=== PATIENT | female | born 1990 | race Caucasian/White ===

== ENCOUNTER 2019-08-27 06:41 | Day surgery (SDC) | payer MEDICAID ==
[2019-08-24 14:58] LABS: CLARITY,URINE CLEAR (Clear); COLOR,URINE YELLOW (Yellow); GLUCOSE, URINE NEGATIVE (Neg); KETONES,URINE NEGATIVE (Neg); LEUKOCYTE ESTERASE ,URINE NEGATIVE (Neg); NITRITES, URINE NEGATIVE (Neg); OCCULT BLOOD,URINE NEGATIVE (Neg); PH,URINE 6.5 (4.8-8.0); PROTEIN,URINE NEGATIVE (Neg); UROBILINOGEN,URINE 0.2 E.U/dL (0.2-1.0)
[2019-08-24 14:58] LABS: BASOPHILS # (AUTO) 0.1 X10'3 (0-0.2); BASOPHILS % (AUTO) 0.8 % (0-1); EOSINOPHILS # (AUTO) 0.1 X10'3 (0-0.9); EOSINOPHILS % (AUTO) 1.6 % (0-6); LYMPHOCYTES # (AUTO) 2.8 X10'3 (1.1-4.8); LYMPHOCYTES % (AUTO) 35.9 % (21-51); MEAN CORPUSCULAR HEMOGLOBIN 26.1 PG (27.0-31.0); MEAN CORPUSCULAR HGB CONC 33.1 g/dL (33.0-36.5); MEAN CORPUSCULAR VOLUME 78.9 FL (78-98); MEAN PLATELET VOLUME 8.9 FL (7.4-10.4); MONOCYTES # (AUTO) 0.8 X10'3 (0-0.9); NEUTROPHILS % (AUTO) 51.7 % (42-75); PRE OP HEMATOCRIT 39.9 % (35.0-45.0); PRE OP HEMOGLOBIN 13.2 g/dL (12.0-16.0); PRE OP PLATELET COUNT 309 X10'3 (140-440); RED BLOOD COUNT 5.06 X10'6 (4.20-5.60); RED CELL DISTRIBUTION WIDTH 14.3 % (11.5-14.5)
[2019-08-24 15:00] LABS: UA COLLECTION TYPE CLN CATCH MIDSTREAM
[2019-08-24 15:07] LABS: HCG SERUM QL NEGATIVE
[2019-08-24 15:09] LABS: PRE OP INR 0.9 INR; PRE OP PROTIME 9.7 SECONDS (9.0-12.0)
[2019-08-24 15:16] LABS: ALBUMIN 3.8 G/DL (3.4-5.0); ALKALINE PHOSPHATASE 79 IU/L (46-116); BLOOD UREA NITROGEN 9 MG/DL (7-18); BUN/CREATININE RATIO 12.5 (6.6-38.0); CALCIUM 8.4 MG/DL (8.5-10.1); CHLORIDE 108 MMOL/L (99-107); CREATININE 0.72 MG/DL (0.40-0.90); PRE OP ALT 54 U/L (30-65); PRE OP ANION GAP 8 (8-16); PRE OP AST 30 U/L (10-37); PRE OP BILIRUB, TOTAL 0.2 MG/DL (0.0-1.0); PRE OP GLUCOSE 77 MG/DL (70-104); PRE OP POTASSIUM 3.8 MMOL/L (3.4-5.1); PRE OP SODIUM 142 MMOL/L (135-145); TOTAL CARBON DIOXIDE 26.1 MMOL/L (24-32); TOTAL PROTEIN 7.7 G/DL (6.4-8.2); eGFR > 90 ML/MIN
[2019-08-27] VITALS (8 sets, daily range): BP systolic 137–151; BP diastolic 79–92
[~2019-08-27] VITALS: Ht 175.3 cm; Wt 117.9 kg
[~2019-08-27 06:41] MED LIST: DULO-31 PO; MULT-1085 PO; ceFOXitin 2 GM ADDvantage bag 100 ML IV ONE; famotidine 10mg tablet PO ONE; ringers solution, lacted 1,000 ML IV SCH
[2019-08-27] MEDS ORDERED: aprepitant 40mg capsule PO ONE ×2 (07:15→07:20)
[2019-08-27] MEDS ORDERED: scopolamine 1.5mg patch.TD72 TD ONE ×2 (07:15→07:16)
[2019-08-27] MEDS ORDERED: ringers solution, lacted 1,000 ML IV SCH (07:55)
[2019-08-27] MEDS ORDERED: meperidine/PF 25mg/ml syringe IV PRN ×3 (07:55)
[2019-08-27] MEDS ORDERED: morphine 4 MG/ML inj SYRINge IV PRN ×2 (07:55)
[2019-08-27] MEDS ORDERED: proCHLORperazine 10 MG/2 ml inj IV PRN (07:55)
[2019-08-27] MEDS ORDERED: ondansetron/PF 4mg/2ml inj IV PRN (07:55)
[2019-08-27] MEDS ORDERED: BUPIVAcaine/PF 2.5 mg/ml (0.25%) 30ml vial ONE (08:06)
[2019-08-27] MEDS ORDERED: midazolam 2 mg/2 ml injection ONE (08:31)
[2019-08-27] MEDS ORDERED: LIDOcaine 2% (20mg/ml) 5ml vial ONE (08:31)
[2019-08-27] MEDS ORDERED: propofol inj 20 ML IV ONE (08:31)
[2019-08-27] MEDS ORDERED: rocuronium 10mg/ml inj IV ONE (08:31)
[2019-08-27] MEDS ORDERED: fentaNYL /PF 50mcg/ml 5ml ampule ONE (08:31)
[2019-08-27] MEDS ORDERED: fentaNYL/PF 50MCG/1 ML 2ML syringe ONE (11:17)
[2019-08-27] MEDS ORDERED: acetaminophen 1,000mg/100ml IV 100 ML IV ONE (11:46)
--- NOTE | 2019-08-27 12:07 | NUR ---
Received from OR via , accompanied by Anesthesiologist DR SOLITARIO and report given by Anesthesiolgist. AWAKENS TO VOICE. VITALS STABLE. DRESSINGS DI. IRENE PAIN. ABD SOFT.
[2019-08-27] MEDS ORDERED: ketorolac trometh. 30mg/ml inj. IV ONE (13:05)
--- NOTE | 2019-08-27 13:37 | NUR ---
AWAKE AND ORIENTED. VITALS STABLE. DRESSINGS DI. STATES PAIN TOLERABLE. HOME WITH HER SPOUSE AT THIS TIME.
== END 2019-08-27 13:37 | disposition home or self-care (01) ==
LOC: PAS 06:41
PROVIDERS: ATTEND Obstetrics & Gynecology
DX: R10.2 Pelvic and perineal pain (principal); N92.1 Excessive and frequent menstruation with irregular cycle; N83.291 Other ovarian cyst, right side; N73.6 Female pelvic peritoneal adhesions (postinfective); I10 Essential (primary) hypertension; Z79.899 Other long term (current) drug therapy; Z80.49 Family history of malignant neoplasm of other genital organs
CPT/HCPCS: 36415; 58570; 58662; 80053; 81003; 84703; 85025; 85610; 85730; 86885; 86900; 86901; C1758; J0131; J0694; J1885; J2001; J2250; J2704; J3010; J3490; J7030; J7120; J8501; S2900; 82948; A4355; A4618; A7000

== ENCOUNTER 2023-09-14 11:28 | Emergency (ER) | payer MEDICAID ==
[~2023-09-14] VITALS: Ht 177.8 cm; Wt 125.2 kg
[~2023-09-14 11:28] MED LIST changes: -ceFOXitin 2 GM ADDvantage bag 100 ML IV ONE; -famotidine 10mg tablet PO ONE; -ringers solution, lacted 1,000 ML IV SCH
[2023-09-14] MEDS ORDERED: normal saline 1000ML IV soln IVB ONE (12:05)
[2023-09-14] MEDS ORDERED: ketorolac tromethamine 15mg/ml inj. IV ONE (12:05)
[2023-09-14] MEDS ORDERED: ondansetron/PF 4mg/2ml inj IV ONE (12:05)
[2023-09-14 12:08] LABS: BILIRUBIN,URINE NEGATIVE (Neg); CLARITY,URINE CLEAR (Clear); COLOR,URINE YELLOW (Yellow); GLUCOSE, URINE NEGATIVE (Neg); KETONES,URINE NEGATIVE (Neg); LEUKOCYTE ESTERASE ,URINE NEGATIVE (Neg); NITRITES, URINE NEGATIVE (Neg); OCCULT BLOOD,URINE NEGATIVE (Neg); PROTEIN,URINE NEGATIVE (Neg); UROBILINOGEN,URINE 0.2 E.U/dL (0.2-1.0)
[2023-09-14 12:09] LABS: URINE HCG NEGATIVE (NEG)
[2023-09-14 12:12] LABS: UA COLLECTION TYPE CLN CATCH MIDSTREAM
[2023-09-14 13:02] LABS: BASOPHILS % (AUTO) 0.7 % (0-1); EOSINOPHILS # (AUTO) 0.1 X10'3 (0-0.9); EOSINOPHILS % (AUTO) 1.5 % (0-6); LYMPHOCYTES # (AUTO) 2.5 X10'3 (1.1-4.8); LYMPHOCYTES % (AUTO) 40.2 % (21-51); MEAN CORPUSCULAR HEMOGLOBIN 26.6 PG (27.0-31.0); MEAN CORPUSCULAR HGB CONC 33.4 g/dL (33.0-36.5); MEAN CORPUSCULAR VOLUME 79.7 FL (78-98); MEAN PLATELET VOLUME 9.1 FL (7.4-10.4); MONOCYTES # (AUTO) 0.5 X10'3 (0-0.9); MONOCYTES % (AUTO) 7.4 % (2-12); NEUTROPHILS # (AUTO) 3.1 X10'3 (1.8-7.7); NEUTROPHILS % (AUTO) 50.2 % (42-75); PLATELET COUNT 301 X10'3 (140-440); RED BLOOD COUNT 5.26 X10'6 (4.20-5.60); RED CELL DISTRIBUTION WIDTH 14.5 % (11.5-14.5); WHITE BLOOD COUNT 6.1 X10'3 (4.5-11.0)
[2023-09-14 13:20] LABS: ALANINE AMINOTRANSFERASE 33 U/L (12-78); ALBUMIN 3.9 G/DL (3.4-5.0); ALBUMIN/GLOBULIN RATIO 0.9 (1.1-1.5); ALKALINE PHOSPHATASE 68 IU/L (46-116); ANION GAP 10 (8-16); ASPARTATE AMINO TRANSFERASE 23 U/L (10-37); BILIRUBIN,TOTAL 0.4 MG/DL (0.1-1.0); BLOOD UREA NITROGEN 12 MG/DL (7-18); BUN/CREATININE RATIO 16.4 (10.0-20.0); CALCIUM 9.6 MG/DL (8.5-10.1); CHLORIDE 100 MMOL/L (99-107); CREATININE 0.73 MG/DL (0.40-0.90); GLUCOSE 117 MG/DL (70-104); LIPASE 26 U/L (16-77); SODIUM 139 MMOL/L (135-145); TOTAL CARBON DIOXIDE 28.8 MMOL/L (24-32); TOTAL PROTEIN 8.3 G/DL (6.4-8.2); eCRCL 120 ML/MIN; eGFR > 90 ML/MIN
[2023-09-14 13:23] VITALS: BP 154/99; PULSE 60; TEMP 97.8; O2SAT 100
[2023-09-14 13:26] LABS: POTASSIUM 2.8 MMOL/L (3.5-5.1)
[2023-09-14] MEDS ORDERED: potassium Cl 20 mEq SR tablet PO STA (13:26)
[2023-09-14 13:32] VITALS: RESP 16
[2023-09-14] MEDS ORDERED: LOSA50TA64 PO (13:41)
== END 2023-09-14 14:52 | disposition home or self-care (01) ==
LOC: ER 11:28
DX: N83.202 Unspecified ovarian cyst, left side (principal); I10 Essential (primary) hypertension; Z91.09 Other allergy status, other than to drugs and biological substances; Z91.040 Latex allergy status; Z79.899 Other long term (current) drug therapy; Z98.890 Other specified postprocedural states
CPT/HCPCS: 36415; 76830; 76856; 80053; 81003; 81025; 83690; 85025; 93976; 96361; 96374; 99285; J1885; J7030

== ENCOUNTER 2025-01-03 08:13 | Emergency (ER) | payer MEDICAID ==
[~2025-01-03] VITALS: Ht 177.8 cm; Wt 125.0 kg
[~2025-01-03 08:13] MED LIST changes: +LOSA50TA64 PO
[2025-01-03 08:15] VITALS: BP 153/90; PULSE 68; RESP 15; O2SAT 100
[2025-01-03 09:05] VITALS: TEMP 98.2
--- NOTE | 2025-01-03 09:20 | Physician Documentation ---
History of Present Illness ~ Chief Complaint: Bite-animal Stated Complaint: CAT BITE Time Seen by MD: 08:32 Primary Medical Doctor: tess engle HPI 34-year-old female presenting with a cat scratch and subsequent infection on her right forearm. Patient states that she was trying to help a feral cat yesterday and the cat got scared and scratched her. Several hours later she noticed that some areas of redness started to appear around the area of the scratch. She states that this has worsened today and has become slightly sore and painful. She denies any fever or chills. Denies any other symptoms. Tetanus within 5 years?: No Medication Reconciliation Allergies: Coded Allergies: adhesive tape (Verified Allergy, Unknown, 09/14/23) latex (Verified Allergy, Unknown, 09/14/23) Scheduled Duloxetine Hcl* (Cymbalta*), 1 CAP PO HS, (Reported) Losartan Potassium (Losartan Potassium), 1 TAB PO DAILY Multivitamin (Multi Vitamin Daily), 1 EACH PO DAILY, (Reported) Past Medical History Past Medical History: Hypertension Past Surgical History: , orthopedic surgeries Review of Systems All Other Systems at this time: Reviewed and Negative Physical Exam Vital Signs: Temperature: 98.2, Source: Oral, Heart Rate: 68, Respiratory Rate: 15, BP: 153/90, Pulse Oximetry: 100, Weight: 125.000 Oxygen Flow Rate: 0 Physical Exam I have reviewed the triage vitals. CONST: Well developed and well nourished. In no acute distress HENT: Head Atraumatic EYES: Pupils are equal, round and reactive to light. Normal conjunctiva NECK: Normal range of motion. Supple. CARDIO: Normal rate and regular rhythm. No murmurs, rubs, or gallops. S1, S2. PULM/CHEST: No respiratory distress. Lungs clear to auscultation. No wheeze ABD: Soft and nontender. Nondistended. Bowel sounds normal. No guarding. : Exam deferred MSK: No edema. No deformity. There are several cat scratches over the right forearm with a surrounding area of erythema, induration and tenderness to palpation NEURO: Alert and oriented to person, place and time. Moving all extremities SKIN: Warm and dry. PSYCH: Normal mood and affect. Good eye contact. Progress Results/Orders Results/Orders Completed Orders - ANA BEE MD Ceftriaxone Im Kit W/Lidocaine (Rocephin (01/03/25 09:15) Amox Tr/Potassium Clavulanate (Augmentin (01/03/25 09:15) Tetanus/Pertuss/Diph Acell/Pf (Boostrix (01/03/25 09:20) Medications Received in ER Medications (Trade) Dose Ordered Sig/Lizzie Route PRN Reason Start Time Stop Time Status Last Admin Dose Admin (Rocephin 1GM IM kit (w/lidocaine diluent)) 1,000 mg ONCE ONCE IM 01/03/25 09:15 01/03/25 09:16 DC 01/03/25 09:40 1,000 MG (Augmentin 875-125mg tablet) 1 tab ONCE ONCE PO 01/03/25 09:15 01/03/25 09:16 DC 01/03/25 09:39 1 TAB (Boostrix vaccine syringe) 0.5 ml ONCE ONCE IMVAC 01/03/25 09:20 01/03/25 09:22 DC 01/03/25 09:41 0.5 ML Vital Signs 01/03/25 01/03/25 01/03/25 08:15 09:05 09:52 Temp 98.2 Pulse 68 Resp 15 B/P (MAP) 153/90 Pulse Ox 100 O2 Flow Rate 0 Medical Decision Making Additional Comment 34-year-old female presenting with cat scratch induced cellulitis of the right forearm. Patient's tetanus was updated. Patient was given one dose of 1 g IM ceftriaxone in the ED as well as started on Augmentin 875 mg and given the 1st dose here in ED. she will be discharged with a prescription for a seven day course of Augmentin. The patient's was advised to monitor the symptoms for imp rovement and resolution. Follow up with PCP in the next 2-5 days. Return to the ED with any acutely worsening symptoms. Departure Disposition: 01 HOME / SELF CARE / HOMELESS Impression: Primary Impression: Cat scratch Additional Impression: Cellulitis Condition: Stable Discharge Instructions: Animal Bite, Adult Additional Instructions: Take medication as prescribed. Monitor symptoms for improvement and resolution. Follow up with PCP in the next 2-5 days. Return to the ED with any acutely worsening symptoms. Referrals: NO PRIMARY CARE PROVIDER (PCP) Prescriptions Amox Tr/Potassium Clavulanate (Augmentin 875-125 Tablet) 1 Each Tablet 1 TAB PO Q12H for 7 Days, #14 TAB Prov: ANA BEE MD 01/03/25 Signature Scribe Signature: 1 Attestation: 1 ANA BEE MD January 03, 2025 09:20
[2025-01-03] MEDS: amox tr/potassium clavulanate 875/125mg TAB PO ONE (09:39)
[2025-01-03] MEDS: CefTRIAXone 1000mg IM Kit (w/lidocaine diluent) IM ONE (09:40)
[2025-01-03] MEDS: TETanus/Pertussis (Acell)/Diphther VAC/PF (Tdap-Adult) 0.5ml syringe IMVAC ONE (09:41)
[2025-01-03] MEDS ORDERED: AMOX-117 PO (09:54)
== END 2025-01-03 09:55 | disposition home or self-care (01) ==
LOC: ER 08:14
DX: S50.811A Abrasion of right forearm, initial encounter (principal); L03.113 Cellulitis of right upper limb; I10 Essential (primary) hypertension; Z88.8 Allergy status to other drugs, medicaments and biological substances; W55.01XA Bitten by cat, initial encounter; Y93.89 Activity, other specified; Y92.89 Other specified places as the place of occurrence of the external cause; Y99.8 Other external cause status
CPT/HCPCS: 90471; 90715; 96372; 99284; J0696